=== PATIENT | male | born 1955 ===

== ENCOUNTER 2017-11-24 07:47 | Day surgery (SDC) | payer OTHER ==
[2017-11-20 18:42] VITALS: BMI 20.9
[2017-11-24] MEDS ORDERED: oxyCODONE HCL 5 MG TABLET PO PRN (10:02)
[2017-11-24] MEDS ORDERED: ONDANSETRON 4 MG/2 ML VIAL IVPUSH PRN (10:02)
[2017-11-24] MEDS ORDERED: PROMETHAZINE HCL 25 MG/1 ML VIAL IVPB PRN (10:02)
[2017-11-24] MEDS ORDERED: LACTATED RINGERS SOLUTION 1,000 ML IV SCH (10:15)
[2017-11-24] MEDS ORDERED: MIDAZOLAM HCL 2 MG/2 ML SINGLE DOSE VIAL ONE ×4 (10:32→11:16)
[2017-11-24] MEDS ORDERED: KETOROLAC TROMETHAMINE 30 MG/1 ML VIAL ONE (10:38)
[2017-11-24] MEDS ORDERED: DEXAMETHASONE SOD PHOSPHATE 4 MG/1 ML VIAL ONE (10:38)
--- NOTE | 2017-11-24 10:58 | OP ---
Operative Note - Note: Operative Date: 11/24/17 Pre-Operative Diagnosis: Left kidney stone Operation: Left ESWL Findings: 5 mm lower kidney pole stone Surgeon: Lopez Zavala Anesthesia: Fractional
[2017-11-24 11:22] VITALS: TEMP 98
[2017-11-24 13:41] VITALS: BP 107/65; PULSE 65
--- NOTE | 2017-11-24 21:12 | OP ---
DATE OF OPERATION: 11/24/2017 PREOPERATIVE DIAGNOSIS: Left renal stone. POSTOPERATIVE DIAGNOSIS: Left renal stone. PROCEDURE: Left extracorporeal shock wave lithotripsy. ATTENDING: Itzel Gay MD ANESTHESIA: General. DESCRIPTION OF OPERATION: The patient was brought in the operating room, placed in a supine position on the operating room table. Ultrasonography and fluoroscopy were performed. A 5-mm left lower pole stone was identified. At this point, fractional anesthesia was administered as well as preoperative antibiotics. Shock wave lithotripsy was then performed; 2500 impulses at 17 joules of power were administered to the stone under real-time ultrasonography and fluoroscopy. No complications were noted. The patient tolerated the procedure very well. The disposition of the patient was to the recovery room. ITZEL GAY M.D. [id number]
== END 2017-11-24 14:00 | disposition home or self-care (01) ==
LOC: JASU-SURG 07:47
PROVIDERS: ATTEND Urology
PROC: 0TF4XZZ Fragmentation in Left Kidney Pelvis, External Approach (ICD-10-PCS; principal; 2017-11-24 10:15)
DX: N20.0 Calculus of kidney (principal)
CPT/HCPCS: 94760